=== PATIENT | male | born 1950 | race Caucasian/White ===

== ENCOUNTER → 2019-08-02 | Outpatient (CLI) | payer OTHER ==
--- NOTE | 2019-08-02 18:16 | PCVCIMAG ---
APPROVED REPORT Study performed: 08/02/2019 15:37:37 Exam: Stress Echocardiogram Indication: Parox Atrial Fibrillation,TIA,HTN,DM,CAD Patient Location: Echo lab Stress Nurse: Faina Bills RN Room #: 2 Status: routine Ht: 5 ft 10 in HR: 56 bpm BP: 152/82 mmHg Rhythm: NSR Medical History Medical History: CAD non obstructive, HTN, Diabetes Medications: Bystolic Cardiac Risk Factors: HTN, DM Previous Cardiac Procedures: none Pretest Chest Pain Characteristics: No chest pain Exercise History: Physically active Procedure The patient underwent an Exercise Stress Test using the Kane Protocol. Blood pressure, heart rate, and EKG were monitored. An Echocardiogram was performed by technical support technician in four stages in quad fashion. At peak stress, four selected images were obtained and placed side by side with resting images for comparison. Stress Test Details Stress Test: Exercise stress testing was performed using a Kane protocol. HR Resting HR: 56 bpmMax Heart Rate (APMHR): 151 bpm Max HR Achieved: 136 bpmTarget HR (85% APMHR): 128 bpm % of APMHR: 90 Recovery HR: 81 bpm HR response to stress: Normal HR response to stress BP Resting BP: 152/82 mmHg Max BP: 164/78 mmHg Recovery BP: 130/64 mmHg BP response to stress: Normal blood pressure response to stress. ECG Resting ECG: Sinus Rhythm with PVCs Stress ECG: Sinus Rhythm with PVCs ST Change: Non-ischemic Arrhythmia: frequent PVCs Recovery ECG: Sinus Rhythm Recovery ST Change: Non-ischemic Recovery Arrhythmia: frequent PVCS Clinical Reason for Termination: Maximal effort Stress Symptoms: none Exercise duration: 12 min 47 sec Highest Stage Achieved: Stage 5: 5.0 mph at 18% grade. Exercise capacity: 16.3 METs Overall Exercise Capacity for Age: Good Scale: Active Angina Score: None No complications. Pre-Stress Echo The resting Echocardiogram showed normal left ventricular contractility with an estimated Ejection Fraction of about 55-60%. Normal wall motion in all segments on baseline images. Post-Stress Echo The stress Echocardiogram showed normal left ventricular contractility with an estimated Ejection Fraction of about 65-70%. Normal augmentation of wall motion in all segments on post stress images. Clinical No clinical or ECG evidence for ischemia. Conclusion Clinical Response: Non-ischemic Exercise Capacity: Superior Stress ECG Response: Non-ischemic Stress Echo Images: Non-ischemic No clinical, EKG or echocardiographic evidence for ischemia. No echocardiographic evidence for exercise induced ischemia. Normal stress echocardiogram with maximal exercise stress. Mild aortic regurgitation, mild-mod mitral regurgitation. No stenosis present on pulmonic, mitral, tricuspid or aortic valves. <Conclusion> No clinical, EKG or echocardiographic evidence for ischemia. No echocardiographic evidence for exercise induced ischemia. Normal stress echocardiogram with maximal exercise stress. Mild aortic regurgitation, mild-mod mitral regurgitation. No stenosis present on pulmonic, mitral, tricuspid or aortic valves.
== END | disposition home or self-care (01) ==
LOC: PCVCIMAG 16:21
PROVIDERS: ATTEND Internal Medicine Cardiovascular Disease
DX: I08.0 Rheumatic disorders of both mitral and aortic valves (principal); I48.0 Paroxysmal atrial fibrillation; E11.9 Type 2 diabetes mellitus without complications; R93.1 Abnormal findings on diagnostic imaging of heart and coronary circulation; I10 Essential (primary) hypertension; I15.9 Secondary hypertension, unspecified; E78.00 Pure hypercholesterolemia, unspecified; Z86.73 Personal history of transient ischemic attack (TIA), and cerebral infarction without residual deficits
CPT/HCPCS: 93325; 93351